=== PATIENT | male | born 1990 | race Caucasian/White ===

== ENCOUNTER 2021-07-31 14:43 | Emergency (ER) | payer MEDICAID ==
[~2021-07-31] VITALS: Ht 177.8 cm; Wt 77.1 kg
[2021-07-31 15:08] VITALS: BP_SYST 145
--- NOTE | 2021-07-31 15:12 | NUR ---
Patient to ER Hall[facility] to [facility] for evaluation. Side rails up. Report given to myself Nikole WILSON to assume care.
--- NOTE | 2021-07-31 15:13 | NUR ---
Pt coming from home ambulatory with steady gait. Pt c/o having SI and depression x1 week. Pt states he has an active plan *I want to get a gun and shoot myself*. Has no other c/o. A&Ox4. Calm and follows commands. Skin intact. VSS. NKA. Pt has hx of depression. Does use meth regurlary states. Bed in lowest position. Will continue to monitor pt.
--- NOTE | 2021-07-31 15:15 | NUR ---
ER at bedside examining patient.
--- NOTE | 2021-07-31 15:47 | NUR ---
PT STATING HE WANTS TO LEAVE, DIRECTABLE AND COOPERATIVE AT THIS TIME. SANDWICH BOX PROVIDED TO PT
--- NOTE | 2021-07-31 15:56 | NUR ---
Pt eloped. Pt walked out the door and left building. Charge nurse aware. Called [place] [employer] and made them aware of suicidal pt eloping the ER. They noted pts decription and stated they will keep an eye out on finding pt. Pt left no belongings.
[2021-07-31 16:01] VITALS: BP_SYST 134
== END 2021-07-31 16:03 | disposition left against medical advice (07) ==
LOC: SED 14:43
DX: R41.0 Disorientation, unspecified (principal); Z53.21 Procedure and treatment not carried out due to patient leaving prior to being seen by health care provider

== ENCOUNTER 2021-08-01 09:20 | Emergency (ER) | payer MEDICAID ==
[~2021-08-01] VITALS: Ht 177.8 cm; Wt 72.6 kg
[2021-08-01 09:33] VITALS: BP_SYST 101
--- NOTE | 2021-08-01 09:33 | NUR ---
Patient to ER bed 5 for evaluation. Side rails up. Report given to Hyacinth WILSON.
--- NOTE | 2021-08-01 09:35 | NUR ---
Report to Dr Mason and charge account authorizer as well as primary nurse re SI with plan and recent attempt. See C-SS[facility] documentation in chart. Transportation to be arranged to [facility], or other psychiatric facility.
--- NOTE | 2021-08-01 09:40 | NUR ---
Pt brought by self, ambulatory, pt states he feels depressed sometimes, states he does not want to but sometimes he feels sad and thinks about hurting himself, pt states he would like to get help and agrees to go voluntarily to [place], pt states he is homeless and would like to get something to eat and drink, pt left AMA yesterday from this ER, VSS, no injuries noted, will cont to monitor.
--- NOTE | 2021-08-01 10:47 | NUR ---
food tray given to patient at this time. well tolerated
--- NOTE | 2021-08-01 11:39 | NUR ---
Pt sitting in the bed, no s/s of distress, calm, will cont to monitor.
--- NOTE | 2021-08-01 11:45 | NUR ---
Pt laying down in bed, respirations even and unlabored.
--- NOTE | 2021-08-01 12:48 | NUR ---
Report given to Kenna WILSON
--- NOTE | 2021-08-01 14:31 | NUR ---
Lunch tray given to patient ,well tolerated
--- NOTE | 2021-08-01 14:48 | NUR ---
Pt continues to rest in bed; in NAD. Pt alert, oriented to person, place and situation. Continues to await taxi transportation for discharge to [facility].
[2021-08-01 15:32] VITALS: BP_SYST 101
--- NOTE | 2021-08-01 15:32 | NUR ---
Patient given written and verbal discharge instructions and verbalizes understanding. ER MD discussed with patient the results and treatment provided. Patient in stable condition. ID arm band removed. No Rx given. Patient educated on pain management and to follow up with PMD. Pain Scale 0/10. Opportunity for questions provided and answered. Medication side effect fact sheet provided.
--- NOTE | 2021-08-01 15:32 | NUR ---
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
== END 2021-08-01 15:32 | disposition home or self-care (01) ==
LOC: SED 09:20
DX: F20.9 Schizophrenia, unspecified (principal)
CPT/HCPCS: 99281